=== PATIENT | female | born 1965 | race African-American/Black ===

== ENCOUNTER 2017-08-04 10:47 | Inpatient (IN) | payer OTHER ==
[2017-08-04 11:12] VITALS: BMI 21.5
--- NOTE | 2017-08-04 11:13 | HP ---
CIWA Score - CIWA Score Nausea/Vomitin-Mild Nausea/No Vomiting Muscle Tremors: 4-Moderate,w/Arms Extend Anxiety: 4-Mod. Anxious/Guarded Agitation: 1-Slight > Activity Paroxysmal Sweats: 1-Minimal Palms Moist Orientation: 0-Oriented Tacttile Disturbances: 0-None Auditory Disturbances: 1-Very Mild Visual Disturbances: 1-Very Mild Sensitivity Headache: 2-Mild CIWA-Ar Total Score: 15 Admission ROS BHS - HPI Chief Complaint: I'm here for detox, I'm tired Allergies/Adverse Reactions: Allergies Allergy/AdvReac Type Severity Reaction Status Date / Time Penicillins Allergy Mild Hives Verified 08/04/17 11:06 Tetracyclines Allergy Mild Hives Verified 08/04/17 11:06 History of Present Illness: 52 yo woman here for detox from alcohol - was in [facility] last night and sent for detox, history of black outs but no seizures. Was last in detox in [facility] about two months ago, was in rehab in [facility] about two or three years ago. Exam Limitations: Clinical Condition - Ebola screening Have you traveled outside of the country in the last 21 days: No Have you had contact with anyone from an Ebola affected area: No Do you have a fever: No - Review of Systems Constitutional: Loss of Appetite, Night Sweats, Changes in sleep EENT: reports: Blurred Vision Respiratory: reports: No Symptoms reported Cardiac: reports: No Symptoms Reported GI: reports: Indigestion : reports: No Symptoms Reported Musculoskeletal: reports: Back Pain, Joint Pain Integumentary: reports: No Symptoms Reported Neuro: reports: Headache Endocrine: reports: No Symptoms Reported Hematology: reports: No Symptoms Reported Psychiatric: reports: Judgement Intact, Mood/Affect Appropiate, Orientated x3, Anxious Other Systems: Reviewed and Negative Patient History - Patient Medical History Hx Anemia: No Hx Asthma: Yes Hx Cancer: No Hx Cardiac Disorders: No Hx Congestive Heart Failure: No Hx Hypertension: Yes Hx Hypercholesterolemia: No Hx Pacemaker: No HX Cerebrovascular Accident: No Hx Seizures: No Hx Dementia: No Hx Diabetes: No Hx Gastrointestinal Disorders: No Hx Liver Disease: No Hx Genitourinary Disorders: No Hx Sexually Transmitted Disorders: Yes (treated with injections years ago) Hx Renal Disease (ESRD): No Hx Thyroid Disease: No Hx Human Immunodeficiency Virus (HIV): No Hx Hepatitis C: No Hx Depression: Yes (hx meds, last hospitalized 1999 Vu) Hx Suicide Attempt: No Hx Bipolar Disorder: Yes Hx Schizophrenia: No Other Medical History: eczema - Patient Surgical History Hx Section: Yes (four) - PPD History Previous Implant?: Yes Documented Results: Negative w/o proof PPD to be Administered?: Yes - Reproductive History Patient is a Female of Child Bearing Age (11 -55 yrs old): Yes Patient : No - Smoking Cessation Smoking history: Current every day smoker Have you smoked in the past 12 months: Yes Aproximately how many cigarettes per day: 10 Initiated information on smoking cessation: Yes 'Breaking Loose' booklet given: 08/04/17 (give on floor) - Substance & Tx. History Hx Alcohol Use: Yes Hx Substance Use: Yes Substance Use Type: Alcohol, Cocaine Hx Substance Use Treatment: Yes (detox, rehab) - Substances Abused Alcohol Route: Oral Frequency: Daily Amount used: 1 12 oz beer; 1/5 liquor Age of first use: 14 Date of Last Use: 08/03/17 Cocaine Route: Smoking Frequency: 3-6 times per week Amount used: $80 Age of first use: 21 Date of Last Use: 08/03/17 Family Disease History - Family Disease History Family Disease History: [place]: Father (, etoh & heroin), Other: Father, Mother (, sickle cell ), Brother (two living - pot, crack, etoh), Sister (two living ), Son (two - healthy ), Daughter (nine - one with arthritis) Admission Physical Exam BHS - Vital Signs Vital Signs: Vital Signs Period Temp Pulse Resp BP Sys/Granados Pulse Ox Last 24 Hr 95.9 F 90 20 93/65 - Physical General Appearance: Yes: Appropriately Dressed, Moderate Distress HEENTM: Yes: Hearing grossly Normal, Normal ENT Inspection, Normocephalic, Normal Voice Respiratory: Yes: Normal Breath Sounds, No Respiratory Distress Neck: Yes: No masses,lesions,Nodules, Supple Breast: Yes: Breast Exam Deferred Cardiology: Yes: Regular Rhythm, Regular Rate Abdominal: Yes: Soft Genitourinary: Yes: Within Normal Limits Back: Yes: Normal Inspection Musculoskeletal: Yes: Gait Steady Extremities: Yes: Normal Inspection Neurological: Yes: Fully Oriented, Alert, Normal Mood/Affect, Normal Response, Numbness Integumentary: Yes: Normal Color, Warm Lymphatic: Yes: Within Normal Limits - Diagnostic (1) Alcohol dependence with uncomplicated withdrawal Current Visit: Yes Status: Chronic (2) Cocaine dependence Current Visit: Yes Status: Chronic Qualifiers: Substance use status: uncomplicated Qualified Code(s): F14.20 - Cocaine dependence, uncomplicated; F14.20 - Cocaine dependence, uncomplicated; F14.20 - Cocaine dependence, uncomplicated (3) HTN (hypertension) Current Visit: Yes Status: Chronic Qualifiers: Hypertension type: essential hypertension Qualified Code(s): I10 - Essential (primary) hypertension; I10 - Essential (primary) hypertension; I10 - Essential (primary) hypertension (4) Osteoarthritis, knee Current Visit: Yes Status: Chronic Qualifiers: Osteoarthritis type: primary Laterality: right Qualified Code(s) : M17.11 - Unilateral primary osteoarthritis, right knee; M17.11 - Unilateral primary osteoarthritis, right knee (5) Nicotine dependence Current Visit: Yes Status: Chronic Cleared for Admission S - Detox or Rehab S Level of Care: Medically Managed Detox Regimen/Protocol: Librium
[2017-08-04] MEDS ORDERED: LOPERAMIDE HCL 2 MG CAPSULE PO PRN (11:23)
[2017-08-04] MEDS ORDERED: hydrOXYzine PAMOATE 50 MG CAPSULE (FP) PO PRN (11:23)
[2017-08-04] MEDS ORDERED: MENTHOL/PHENOL 1 EACH UD MM PRN (11:23)
[2017-08-04] MEDS ORDERED: MAGNESIUM HYDROX 2400MG/30ML ORAL SUSPENSION 30 ML CUP PO PRN (11:23)
[2017-08-04] MEDS ORDERED: MAGNESIUM CITRATE 300 ML BOTTLE PO PRN (11:23)
[2017-08-04] MEDS ORDERED: MAG HYDROX/AL HYDROX/SIMETH 30 ML UNIT-DOSE CUP PO PRN (11:23)
[2017-08-04] MEDS ORDERED: P-EPHED 60MG/TRIPROLIDI 2.5MG TABLET PO PRN (11:23)
[2017-08-04] MEDS ORDERED: guaiFENesin/D-METHORPHAN HB 10 ML UNIT-DOSE CUPS PO PRN (11:23)
[2017-08-04] MEDS ORDERED: NICOTINE POLACRILEX 4 MG GUM BC PRN (11:23)
[2017-08-04] MEDS ORDERED: chlordiazePOXIDE HCL 25 MG CAPSULE PO PRN (11:23)
[2017-08-04] MEDS ORDERED: ALBUTEROL SO4 18 GM HFA INHALER IH PRN (11:25)
[2017-08-04] MEDS ORDERED: COLLOIDAL OATMEAL 1 BAR EACH TP PRN (11:26)
[2017-08-04] MEDS ORDERED: chlordiazePOXIDE HCL 25 MG CAPSULE PO ONE (12:30)
[2017-08-04] MEDS: ASPIRIN 81 MG CHEWABLE TABLETS PO SCH (12:36)
[2017-08-04] MEDS: HYDROCORTISONE 1% TOPICAL CREAM 30 GM TUBE TP SCH (12:37)
[2017-08-04 16:55] LABS: URINE APPEARANCE SLCLOUDY; URINE BILIRUBIN NEGATIVE (NEGATIVE); URINE BLOOD NEGATIVE (NEGATIVE); URINE COLOR YELLOW; URINE GLUCOSE (UA) NEGATIVE (NEGATIVE); URINE KETONE NEGATIVE (NEGATIVE); URINE NITRITE NEGATIVE (NEGATIVE); URINE PROTEIN NEGATIVE (NEGATIVE); URINE UROBILINOGEN NEGATIVE mg/dL (0.2-1.0)
[2017-08-04] MEDS: chlordiazePOXIDE HCL 25 MG CAPSULE PO SCH ×2 (18:11→23:14)
[2017-08-04 22:05] LABS: URINE LEUK ESTERASE TRACE (NEGATIVE)
[2017-08-04] MEDS: THIAMINE HCL 100 MG TABLET (FP) PO SCH (23:13)
[2017-08-05] MEDS: chlordiazePOXIDE HCL 25 MG CAPSULE PO SCH ×4 (06:32→22:20)
--- NOTE | 2017-08-05 09:10 | EKG ---
Test Reason : Blood Pressure : / mmHG Vent. Rate : 080 BPM Atrial Rate : 080 BPM P-R Int : 130 ms QRS Dur : 090 ms QT Int : 396 ms P-R-T Axes : 067 072 067 degrees QTc Int : 456 ms SINUS RHYTHM WITH MARKED SINUS ARRHYTHMIA MINIMAL VOLTAGE CRITERIA FOR LVH, MAY BE NORMAL VARIANT BORDERLINE ECG NO PREVIOUS ECGS AVAILABLE Confirmed by VADIM ALVARADO, DARIELA ([id number]) on 08/05/2017 9:10:15 AM Referred By: Confirmed By:DARIELA FIERRO MD
[2017-08-05] MEDS: HYDROCORTISONE 1% TOPICAL CREAM 30 GM TUBE TP SCH (10:24)
[2017-08-05] MEDS: PRENATAL VITAMINS W/ FOLIC ACID TABLET (FP) PO SCH (10:25)
[2017-08-05] MEDS: ASPIRIN 81 MG CHEWABLE TABLETS PO SCH (10:25)
[2017-08-05] MEDS ORDERED: LISINOPRIL 10 MG TABLET (FP) PO ONE (10:31)
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
[2017-08-05] MEDS: ACETAMINOPHEN 325 MG TABLET (FP) PO PRN ×2 (10:59→17:41)
[2017-08-05 11:07] LABS: MCH 30.8 pg (25.7-33.7); MCHC 34.4 g/dl (32.0-36.0); MEAN CELL VOLUME 89.3 fl (80-96); MEAN PLT VOLUME 7.8 fl (7.5-11.1); PLATELET COUNT 269 K/MM3 (134-434); RDW 13.3 % (11.6-15.6); WHITE BLOOD COUNT 3.6 K/mm3 (4.0-10.0)
[2017-08-05 11:18] LABS: ALBUMIN 3.2 g/dl (3.4-5.0); ANION GAP 7 (8-16); BILIRUBIN,TOTAL 0.5 mg/dL (0.2-1.0); CALCIUM 8.4 mg/dL (8.5-10.1); CO2 29 mmol/L (21-32); GLUCOSE,RANDOM 86 mg/dL (74-106); SGOT/AST 16 U/L (15-37); SGPT/ALT 18 U/L (12-78)
[2017-08-05 11:19] LABS: ALK PHOS 71 U/L (45-117); TOT PROT 6.4 g/dl (6.4-8.2)
[2017-08-05] MEDS ORDERED: HYDROCHLOROTHIAZIDE 25 MG TABLET (FP) PO ONE (11:45)
[2017-08-05 11:49] LABS: SICKLE CELL SCREEN POSITIVE (NEGATIVE)
[2017-08-05 12:02] LABS: HIV 1 & 2 AB NEGATIVE; HIV 1 AGp24 NEGATIVE
--- NOTE | 2017-08-05 13:54 | PN ---
S CIWA - CIWA Score Nausea/Vomitin Muscle Tremors: 3 Anxiety: 3 Agitation: 2 Paroxysmal Sweats: 1-Minimal Palms Moist Orientation: 0-Oriented Tacttile Disturbances: 1-Very Mild Itch/Numbness Auditory Disturbances: 1-Very Mild Visual Disturbances: 0-None Headache: 2-Mild CIWA-Ar Total Score: 16 BHS Progress Note (SOAP) Subjective: ALERT,IRRITABLE,ANXIOUS,INTERRUPTED SLEEP,TREMOR,PAIN IN THE NECK AND HAND Objective: 08/05/17 13:51 Vital Signs Temperature 99.0 F 08/05/17 10:00 Pulse Rate 91 H 08/05/17 10:00 Respiratory Rate 16 08/05/17 10:00 Blood Pressure 114/81 08/05/17 10:00 O2 Sat by Pulse Oximetry (%) EKG NSR WITH SINUS ARRHYTHMIA Laboratory Last Values WBC 3.6 K/mm3 (4.0-10.0) L 08/05/17 07:30 RBC 4.10 M/mm3 (3.60-5.2) 08/05/17 07:30 Hgb 12.6 GM/dL (10.7-15.3) 08/05/17 07:30 Hct 36.6 % (32.4-45.2) 08/05/17 07:30 MCV 89.3 fl (80-96) 08/05/17 07:30 MCH 30.8 pg (25.7-33.7) 08/05/17 07:30 MCHC 34.4 g/dl (32.0-36.0) 08/05/17 07:30 RDW 13.3 % (11.6-15.6) 08/05/17 07:30 Plt Count 269 K/MM3 (134-434) 08/05/17 07:30 MPV 7.8 fl (7.5-11.1) 08/05/17 07:30 Sickle Cell Screen Positive (NEGATIVE) 08/05/17 07:30 Sodium 140 mmol/L (136-145) 08/05/17 07:30 Potassium 4.0 mmol/L (3.5-5.1) 08/05/17 07:30 Chloride 104 mmol/L (98-107) 08/05/17 07:30 Carbon Dioxide 29 mmol/L (21-32) 08/05/17 07:30 Anion Gap 7 (8-16) L 08/05/17 07:30 BUN 20 mg/dL (7-18) H 08/05/17 07:30 Creatinine 1.0 mg/dL (0.55-1.02) 08/05/17 07:30 Creat Clearance w eGFR 58.45 (>60) 08/05/17 07:30 Random Glucose 86 mg/dL (74-106) 08/05/17 07:30 Calcium 8.4 mg/dL (8.5-10.1) L 08/05/17 07:30 Total Bilirubin 0.5 mg/dL (0.2-1.0) 08/05/17 07:30 AST 16 U/L (15-37) 08/05/17 07:30 ALT 18 U/L (12-78) 08/05/17 07:30 Alkaline Phosphatase 71 U/L (45-117) 08/05/17 07:30 Total Protein 6.4 g/dl (6.4-8.2) 08/05/17 07:30 Albumin 3.2 g/dl (3.4-5.0) L 08/05/17 07:30 Urine Color Yellow 08/04/17 12:08 Urine Appearance Slcloudy 08/04/17 12:08 Urine pH 5.0 (5.0-8.0) 08/04/17 12:08 Ur Specific [place] 1.020 (1.005-1.025) 08/04/17 12:08 Urine Protein Negative (NEGATIVE) 08/04/17 12:08 Urine Glucose (UA) Negative (NEGATIVE) 08/04/17 12:08 Urine Ketones Negative (NEGATIVE) 08/04/17 12:08 Urine Blood Negative (NEGATIVE) 08/04/17 12:08 Urine Nitrite Negative (NEGATIVE) 08/04/17 12:08 Urine Bilirubin Negative (NEGATIVE) 08/04/17 12:08 Urine Urobilinogen Negative mg/dL (0.2-1.0) 08/04/17 12:08 Ur Leukocyte Esterase Trace (NEGATIVE) H 08/04/17 12:08 RPR Titer Nonreactive (NONREACTIVE) 08/05/17 07:30 HIV 1&2 Antibody Screen Negative 08/05/17 07:30 HIV P24 Antigen Negative 08/05/17 07:30 08/05/17 13:53 SICKLE CELL TRAIT Assessment: 08/05/17 13:53 WITHDRAWAL SYMPTOM Plan: CONTINUE DETOX
[2017-08-05] MEDS: IBUPROFEN 400 MG TABLET (FP) PO PRN ×2 (14:21→20:55)
[2017-08-05] MEDS: THIAMINE HCL 100 MG TABLET (FP) PO SCH (22:20)
[2017-08-05] MEDS: diphenhydrAMINE HCL 50 MG CAPSULE PO PRN (22:20)
[2017-08-06] MEDS: chlordiazePOXIDE HCL 25 MG CAPSULE PO SCH ×2 (06:41→10:09)
[2017-08-06] MEDS: IBUPROFEN 400 MG TABLET (FP) PO PRN (06:44)
[2017-08-06] MEDS ORDERED: LISINOPRIL 10 MG TABLET (FP) PO SCH (10:00)
[2017-08-06] MEDS ORDERED: HYDROCHLOROTHIAZIDE 25 MG TABLET (FP) PO SCH (10:00)
[2017-08-06] MEDS: PRENATAL VITAMINS W/ FOLIC ACID TABLET (FP) PO SCH (10:09)
[2017-08-06] MEDS: HYDROCORTISONE 1% TOPICAL CREAM 30 GM TUBE TP SCH (10:09)
[2017-08-06] MEDS: ASPIRIN 81 MG CHEWABLE TABLETS PO SCH (10:09)
--- NOTE | 2017-08-06 10:28 | PN ---
[facility] CIWA - CIWA Score Nausea/Vomitin-No Nausea/No Vomiting Muscle Tremors: 4-Moderate,w/Arms Extend Anxiety: 3 Agitation: 3 Paroxysmal Sweats: 3 Orientation: 0-Oriented Tacttile Disturbances: 0-None Auditory Disturbances: 0-None Visual Disturbances: 0-None Headache: 1-Very Mild CIWA-Ar Total Score: 14 S Progress Note (SOAP) Subjective: agitation anxiety sweats shakes i want my hypertension medication at 7am Objective: 08/06/17 10:21 Vital Signs Temperature 96.6 F L 08/06/17 09:40 Pulse Rate 57 L 08/06/17 09:40 Respiratory Rate 18 08/06/17 09:40 Blood Pressure 139/81 08/06/17 09:40 O2 Sat by Pulse Oximetry (%) Laboratory Tests 08/04/17 08/05/17 08/05/17 12:08 07:30 07:30 WBC 3.6 L RBC 4.10 Hgb 12.6 Hct 36.6 MCV 89.3 MCH 30.8 MCHC 34.4 RDW 13.3 Plt Count 269 MPV 7.8 Sickle Cell Screen Positive Sodium 140 Potassium 4.0 Chloride 104 Carbon Dioxide 29 Anion Gap 7 L BUN 20 H Creatinine 1.0 Creat Clearance w eGFR 58.45 Random Glucose 86 Calcium 8.4 L Total Bilirubin 0.5 AST 16 ALT 18 Alkaline Phosphatase 71 Total Protein 6.4 Albumin 3.2 L Urine Color Yellow Urine Appearance Slcloudy Urine pH 5.0 Ur Specific [place] 1.020 Urine Protein Negative Urine Glucose (UA) Negative Urine Ketones Negative Urine Blood Negative Urine Nitrite Negative Urine Bilirubin Negative Urine Urobilinogen Negative Ur Leukocyte Esterase Trace H RPR Titer HIV 1&2 Antibody Screen HIV P24 Antigen 08/05/17 08/05/17 07:30 07:30 WBC RBC Hgb Hct MCV MCH MCHC RDW Plt Count MPV Sickle Cell Screen Sodium Potassium Chloride Carbon Dioxide Anion Gap BUN Creatinine Creat Clearance w eGFR Random Glucose Calcium Total Bilirubin AST ALT Alkaline Phosphatase Total Protein Albumin Urine Color Urine Appearance Urine pH Ur Specific [place] Urine Protein Urine Glucose (UA) Urine Ketones Urine Blood Urine Nitrite Urine Bilirubin Urine Urobilinogen Ur Leukocyte Esterase RPR Titer Nonreactive HIV 1&2 Antibody Screen Negative HIV P24 Antigen Negative aaox3 ambulating no acute distress Assessment: 08/06/17 10:22 withdrawal sx Plan: continue detox increase fluids motrin 600mg prn medication time for htn switched for 7am as per pt request
[2017-08-06] MEDS: chlordiazePOXIDE 5 MG CAPSULE PO SCH ×2 (17:21→22:11)
[2017-08-06] MEDS: IBUPROFEN 600 MG TABLET (FP) PO PRN (19:00)
[2017-08-06] MEDS: THIAMINE HCL 100 MG TABLET (FP) PO SCH (22:10)
[2017-08-06] MEDS: diphenhydrAMINE HCL 50 MG CAPSULE PO PRN (22:10)
[2017-08-06] MEDS: ACETAMINOPHEN 325 MG TABLET (FP) PO PRN (22:11)
[2017-08-07] MEDS: chlordiazePOXIDE 5 MG CAPSULE PO SCH ×2 (05:38→10:42)
[2017-08-07] MEDS ORDERED: ASPIRIN 81 MG CHEWABLE TABLETS PO SCH ×2 (07:00)
[2017-08-07] MEDS ORDERED: HYDROCHLOROTHIAZIDE 25 MG TABLET (FP) PO SCH ×2 (07:00)
[2017-08-07] MEDS ORDERED: LISINOPRIL 10 MG TABLET (FP) PO SCH (07:00)
[2017-08-07] MEDS: PRENATAL VITAMINS W/ FOLIC ACID TABLET (FP) PO SCH (10:42)
[2017-08-07] MEDS: HYDROCORTISONE 1% TOPICAL CREAM 30 GM TUBE TP SCH (10:43)
[2017-08-07] MEDS: IBUPROFEN 600 MG TABLET (FP) PO PRN ×2 (10:44→20:51)
--- NOTE | 2017-08-07 14:01 | PN ---
BHS Progress Note (SOAP) Subjective: Interrupted sleep, shakes, malaise Objective: 08/07/17 14:00 Vital Signs Temperature 97.2 F L 08/07/17 10:00 Pulse Rate 73 08/07/17 10:00 Respiratory Rate 18 08/07/17 10:00 Blood Pressure 128/73 08/07/17 10:00 O2 Sat by Pulse Oximetry (%) Laboratory Last Values WBC 3.6 K/mm3 (4.0-10.0) L 08/05/17 07:30 RBC 4.10 M/mm3 (3.60-5.2) 08/05/17 07:30 Hgb 12.6 GM/dL (10.7-15.3) 08/05/17 07:30 Hct 36.6 % (32.4-45.2) 08/05/17 07:30 MCV 89.3 fl (80-96) 08/05/17 07:30 MCH 30.8 pg (25.7-33.7) 08/05/17 07:30 MCHC 34.4 g/dl (32.0-36.0) 08/05/17 07:30 RDW 13.3 % (11.6-15.6) 08/05/17 07:30 Plt Count 269 K/MM3 (134-434) 08/05/17 07:30 MPV 7.8 fl (7.5-11.1) 08/05/17 07:30 Sickle Cell Screen Positive (NEGATIVE) 08/05/17 07:30 Sodium 140 mmol/L (136-145) 08/05/17 07:30 Potassium 4.0 mmol/L (3.5-5.1) 08/05/17 07:30 Chloride 104 mmol/L (98-107) 08/05/17 07:30 Carbon Dioxide 29 mmol/L (21-32) 08/05/17 07:30 Anion Gap 7 (8-16) L 08/05/17 07:30 BUN 20 mg/dL (7-18) H 08/05/17 07:30 Creatinine 1.0 mg/dL (0.55-1.02) 08/05/17 07:30 Creat Clearance w eGFR 58.45 (>60) 08/05/17 07:30 Random Glucose 86 mg/dL (74-106) 08/05/17 07:30 Calcium 8.4 mg/dL (8.5-10.1) L 08/05/17 07:30 Total Bilirubin 0.5 mg/dL (0.2-1.0) 08/05/17 07:30 AST 16 U/L (15-37) 08/05/17 07:30 ALT 18 U/L (12-78) 08/05/17 07:30 Alkaline Phosphatase 71 U/L (45-117) 08/05/17 07:30 Total Protein 6.4 g/dl (6.4-8.2) 08/05/17 07:30 Albumin 3.2 g/dl (3.4-5.0) L 08/05/17 07:30 Urine Color Yellow 08/04/17 12:08 Urine Appearance Slcloudy 08/04/17 12:08 Urine pH 5.0 (5.0-8.0) 08/04/17 12:08 Ur Specific [place] 1.020 (1.005-1.025) 08/04/17 12:08 Urine Protein Negative (NEGATIVE) 08/04/17 12:08 Urine Glucose (UA) Negative (NEGATIVE) 08/04/17 12:08 Urine Ketones Negative (NEGATIVE) 08/04/17 12:08 Urine Blood Negative (NEGATIVE) 08/04/17 12:08 Urine Nitrite Negative (NEGATIVE) 08/04/17 12:08 Urine Bilirubin Negative (NEGATIVE) 08/04/17 12:08 Urine Urobilinogen Negative mg/dL (0.2-1.0) 08/04/17 12:08 Ur Leukocyte Esterase Trace (NEGATIVE) H 08/04/17 12:08 RPR Titer Nonreactive (NONREACTIVE) 08/05/17 07:30 Hepatitis C Antibody 0.2 s/co ratio (0.0-0.9) 08/05/17 07:30 HIV 1&2 Antibody Screen Negative 08/05/17 07:30 HIV P24 Antigen Negative 08/05/17 07:30 Labs reviewed. Assessment: 08/07/17 14:14 Alcohol withdrawal symptoms Plan: Continue detox
[2017-08-07] MEDS: chlordiazePOXIDE HCL 10 MG CAPSULE PO SCH ×2 (17:38→22:01)
[2017-08-07] MEDS: ACETAMINOPHEN 325 MG TABLET (FP) PO PRN (17:40)
[2017-08-07] MEDS: THIAMINE HCL 100 MG TABLET (FP) PO SCH (22:00)
[2017-08-07] MEDS: diphenhydrAMINE HCL 50 MG CAPSULE PO PRN (22:00)
[2017-08-08] MEDS: chlordiazePOXIDE HCL 10 MG CAPSULE PO SCH (05:27)
[2017-08-08 06:22] VITALS: BP 130/81; PULSE 63; TEMP 97.2
--- NOTE | 2017-08-08 09:20 | DS ---
[facility] Detox Discharge Summary Admission Date: 08/04/17 Discharge Date: 08/08/17 - History Present History: Alcohol Dependence, Cocaine Dependence - Physical Exam Results Vital Signs: Vital Signs Temperature 97.2 F L 08/08/17 06:00 Pulse Rate 63 08/08/17 06:00 Respiratory Rate 18 08/08/17 06:00 Blood Pressure 130/81 08/08/17 06:00 O2 Sat by Pulse Oximetry (%) - Treatment Hospital Course: Detox Protocol Followed, Detoxed Safely, Responded well, Discharged Condition Good, Rehab Referral Accepted - Medication Discharge Medications: Ambulatory Orders Albuterol Sulfate Inhaler - [Ventolin Hfa Inhaler -] 2 inh PO Q4H PRN 08/04/17 Aspirin [ASA -] 81 mg PO DAILY 08/04/17 Hydrochlorothiazide [Hctz -] 25 mg PO DAILY 08/04/17 Hydrocortisone 1% Cream [Hytone 1% Cream -] 1 applic TP DAILY 08/04/17 Lisinopril [Prinivil] 10 mg PO DAILY 08/04/17 - Diagnosis (1) Substance-induced anxiety disorder Status: Acute (2) Alcohol dependence with uncomplicated withdrawal Status: Acute (3) Asthma Status: Chronic Qualifiers: Asthma severity: mild Asthma persistence: intermittent (4) Cocaine dependence Status: Acute Qualifiers: Substance use status: uncomplicated Qualified Code(s): F14.20 - Cocaine dependence, uncomplicated; F14.20 - Cocaine dependence, uncomplicated; F14.20 - Cocaine dependence, uncomplicated (5) Eczema Status: Chronic Qualifiers: Eczema type: unspecified Qualified Code(s): L30.9 - Dermatitis, unspecified; L30.9 - Dermatitis, unspecified (6) HTN (hypertension) Status: Chronic Qualifiers: Hypertension type: essential hypertension Qualified Code(s): I10 - Essential (primary) hypertension; I10 - Essential (primary) hypertension; I10 - Essential (primary) hypertension (7) Nicotine dependence Status: Chronic Qualifiers: Nicotine product type: cigarettes Substance use status: uncomplicated Qualified Code(s): F17.210 - Nicotine dependence, cigarettes, uncomplicated; F17.210 - Nicotine dependence, cigarettes, uncomplicated (8) Osteoarthritis, knee Status: Chronic Qualifiers: Osteoarthritis type: primary Laterality: right Qualified Code(s) : M17.11 - Unilateral primary osteoarthritis, right knee; M17.11 - Unilateral primary osteoarthritis, right knee - AMA Did Patient Leave Against Medical Advice: No
[2017-08-09 00:06] LABS: Hgb A2 4.3 % (0.7-3.1)
== END 2017-08-08 07:00 | disposition home or self-care (01) | DRG 774 ==
LOC: YASAS 10:47 → Y6N 11:57
PROVIDERS: ADMIT Internal Medicine; ATTEND Internal Medicine
PROC: HZ2ZZZZ Detoxification Services for Substance Abuse Treatment (ICD-10-PCS; principal; 2017-08-04)
DX: F10.230 Alcohol dependence with withdrawal, uncomplicated (principal); F14.20 Cocaine dependence, uncomplicated; F17.210 Nicotine dependence, cigarettes, uncomplicated; F32.9 Major depressive disorder, single episode, unspecified; F19.280 Other psychoactive substance dependence with psychoactive substance-induced anxiety disorder; J45.20 Mild intermittent asthma, uncomplicated; I10 Essential (primary) hypertension; Z87.42 Personal history of other diseases of the female genital tract
CPT/HCPCS: 36415; 80053; 81003; 81015; 83021; 85027; 85660; 86593; 86803; 87389; 93005; 93010